=== PATIENT | male | born 1985 | race Caucasian/White ===

== ENCOUNTER 2023-09-25 09:40 | Inpatient (IN) ==
--- NOTE | 2023-09-17 08:31 | PAT Medication Instructions ---
Medication Instructions Date of Service September 17, 2023 Home Medications clonazepam 1 mg tablet (Klonopin) 1 mg PO TID naproxen 500 mg tablet 500 mg PO BID PRN oxycodone-acetaminophen 10 mg-325 mg tablet 1 tab PO QID pantoprazole 40 mg tablet,delayed release (Protonix) 40 mg PO QAM vortioxetine 20 mg tablet (Trintellix) 20 mg PO QAM ASK your surgeon for instructions naproxen 500 mg tablet 500 mg PO BID PRN Take morning of surgery With a small sip of water, OTHERWISE NOTHING TO EAT OR DRINK AFTER MIDNIGHT: clonazepam 1 mg tablet (Klonopin) 1 mg PO TID oxycodone-acetaminophen 10 mg-325 mg tablet 1 tab PO QID pantoprazole 40 mg tablet,delayed release (Protonix) 40 mg PO QAM vortioxetine 20 mg tablet (Trintellix) 20 mg PO QAM Take evening before surgery clonazepam 1 mg tablet (Klonopin) 1 mg PO TID oxycodone-acetaminophen 10 mg-325 mg tablet 1 tab PO QID Other Notes If you have any questions please call us at [phone] or [phone] or [phone] or [phone]
--- NOTE | 2023-09-17 10:37 | Anesthesiology Consultation ---
Date of Service September 17, 2023 Assessment & Plan (1) Encounter for pre-operative examination: - awaiting surgeon ordered medical clearance (Dr. Tim Howell, [facility]). Chart Review Chart Review: Pending: Refer to Additional Notes / Consult section and Patient seen in Pre Admission Testing Teaching & Discussion Pre-Anesthesia Teaching/Discussion Notes: Instructed NPO after midnight before surgery, except medications with 15 cc of water. Medication instructions provided according to the PAT guidelines. History Surgery Operation Date: 09/25/23 07:45 Proposed Procedures p L4-S1 Decompression and Fusion - Aaron Rodgers DO Height/Weight Height: 6 ft Weight: 95.1 kg Allergies Allergy/AdvReac Type Severity Reaction Status Date / Time No Known Allergies Allergy Verified 09/17/23 07:46 Medications Home Medications Medication Instructions Recorded Confirmed Last Taken clonazepam 1 mg tablet (Klonopin) 1 mg PO TID 09/17/23 09/17/23 Unknown naproxen 500 mg tablet 500 mg PO BID PRN Pain 09/17/23 09/17/23 Unknown oxycodone-acetaminophen 10 mg-325 1 tab PO QID pain 09/17/23 09/17/23 Unknown mg tablet pantoprazole 40 mg tablet,delayed 40 mg PO QAM 09/17/23 09/17/23 Unknown release (Protonix) vortioxetine 20 mg tablet 20 mg PO QAM 09/17/23 09/17/23 Unknown (Trintellix) Past Medical History Medical History (Updated 09/17/23 @ 11:13 by Nona Garcia PA-C) Anxiety Chronic back pain Degenerative disc disease Depression GERD (gastroesophageal reflux disease) controlled, stable per pt Rheumatoid arthritis denies neck pain Patient denies h/o stroke, seizures, heart attack, heart failure, DM, HTN, blood clots/DVTs or blood transfusions. Exercise / Class Metabolic Activity II 4-5 Yardwork/Stairs/Walk up hill (denies chest discomfort or shortness of breath with one flight of stairs) Past Family History Family History Other No family history of adverse response to anesthesia Past Surgical History Surgical History H/O drainage of abscess (1999) tonsillar abscess History of colonoscopy History of esophagogastroduodenoscopy (EGD) S/P epidural steroid injection S/P tonsillectomy (1999) Past Anesthesia History No Family Hx of Anesthesia Complications and Other (awareness with anesthesia) History of PONV No Hx of PONV and No Hx of Motion Sickness Social History Smoking Status: Current every day smoker Smoking cigarettes per day: 1-2 cigs daily (advised on policy) Do You Dip or Chew Tobacco: Yes (1 can/2 days (advised on policy)) Hx Alcohol Use: No Hx Substance Use: Yes substance use type: marijuana Substance Use Type Other:: medical THC Last Used Substance Other:: 09/16/23 (advised on policy) Review of Systems Patient denies chest pain, shortness of breath, dyspnea on exertion, snoring, witnessed apneas, fever, chills, cough, wheezing, or palpitations. Physical Exam Vital Signs Vitals BP 120/87 P 84 SP02 99% on RA RESP 18 Physical Patient resting comfortably in chair in no acute distress, alert and oriented, responding appropriately throughout visit Full cervical extension range of motion without pain TMD 3.5 finger breadths Mallampati Score 2 Dentition: intact, denies chipped or loose teeth, caps/crowns, implants or bridges Lungs: normal respiratory effort. Good air movement, clear throughout to a uscultation, no adventitious breath sounds Cardiac: regular rate and rhythm, no murmurs noted Carotid arteries: negative bruit bilat Lab Results Anesthesia Preop Results Results Anesthesia Widget: WBC 8.86 K/ul (4.8-10.8) 09/17/23 Hgb 15.3 g/dl (14.0-18.0) 09/17/23 Hct 45.6 % (42.0-52.0) 09/17/23 Plt 237 K/uL (130-400) 09/17/23 Na 138 mmol/L (136-145) 09/17/23 K 4.6 mmol/L (3.5-5.1) 09/17/23 Cl 104 mmol/L (98-107) 09/17/23 CO2 31 mmol/L (21-32) 09/17/23 BUN 13 mg/dl (6-23) 09/17/23 Creat 0.98 mg/dl (0.6-1.4) 09/17/23 Glucose Level 92 mg/dl (70-99(Fasting)) 09/17/23 PT 10.4 Seconds (9.0-12.0) 09/17/23 PTT 25 Seconds (21-31) 09/17/23 INR 1.0 (0.9-1.1) 09/17/23 HA1c 5.3 % (4.5-5.6) 09/17/23 Urine Color Yellow 09/17/23 Urine Appearance Clear (Clear) 09/17/23 Urine pH 8.0 (4.5-7.5) H 09/17/23 Urine Specific [place] 1.006 (1.000-1.030) 09/17/23 Urine Protein Negative (Negative) 09/17/23 Urine Glucose (UA) Negative (Negative) 09/17/23 Urine Ketones Negative (Negative) 09/17/23 Urine Blood Negative (Negative) 09/17/23 Urine Nitrite Negative (Negative) 09/17/23 Urine Bilirubin Negative (Negative) 09/17/23 Urine Urobilinogen Negative (Negative) 09/17/23 Urine Leukocyte Esterase Negative (Negative) 09/17/23 Blood Type A Positive 09/17/23 Antibody Screen NEGATIVE 09/17/23 Testing Electrocardiogram Date: 09/17/23 NSR, rate 66 bpm Chest X-Ray Date: 09/17/23 No acute process. Cervical Spine Date: 09/17/23 No evidence for acute fracture or subluxation.
[2023-09-25] MEDS: ACETAMINOPHEN 500 MG TAB PO SCH (10:56)
[2023-09-25] MEDS: LR 15ML/HR IV SCH (10:56)
[2023-09-25] MEDS: LR 60ML/HR IV SCH (10:56)
[2023-09-25] MEDS: GABAPENTIN 900 MG DOSE PO SCH (10:56)
[2023-09-25] MEDS: CeleBREX 200 MG CAP PO SCH (10:57)
[2023-09-25] MEDS ORDERED: ATROPINE SULFATE 0.1 MG/ML 10ML SYR IV PRN (11:48)
[2023-09-25] MEDS ORDERED: DROPERIDOL 5 MG/2 ML VIAL IV PRN (11:48)
[2023-09-25] MEDS ORDERED: ePHEDrine sulfate 50 MG/ML AMP IV PRN (11:48)
--- NOTE | 2023-09-25 12:28 | History & Physical Bridge Note ---
Date of Service September 25, 2023 History & Physical Bridge Note I have examined the patient, reviewed the History & Physical and in the interval since the performance of the History & Physical I have noted the following changes of clinical significance: no changes noted
--- NOTE | 2023-09-25 12:29 | History & Physical Report ---
Date of Service September 25, 2023 Assessment & Plan (1) Neurogenic claudication due to lumbar spinal stenosis: Plan: L4-S1 decompression and fusion History of Present Illness Chief Complaint: Back and bilateral leg pain Primary Care Provider: NO PCP This is a 38-year-old male who presents with chronic persistent back and leg pain after failing course of nonoperative care is here for surgical intervention. Allergies Allergy/AdvReac Type Severity Reaction Status Date / Time No Known Allergies Allergy Verified 09/25/23 10:19 Home Medications Medication Instructions Recorded Confirmed Type clonazepam 1 mg tablet (Klonopin) 1 mg PO TID 09/17/23 09/25/23 History naproxen 500 mg tablet 500 mg PO BID PRN Pain 09/17/23 09/25/23 History oxycodone-acetaminophen 10 mg-325 1 tab PO QID pain 09/17/23 09/25/23 History mg tablet pantoprazole 40 mg tablet,delayed 40 mg PO QAM 09/17/23 09/25/23 History release (Protonix) vortioxetine 20 mg tablet 20 mg PO QAM 09/17/23 09/25/23 History (Trintellix) Past Med/Surg History Problem List (Updated 09/25/23 @ 12:29 by Aaron Rodgers DO) Neurogenic claudication due to lumbar spinal stenosis Encounter for pre-operative examination Medical History (Updated 09/25/23 @ 12:29 by Aaron Rodgers DO) Rheumatoid arthritis denies neck pain Degenerative disc disease Chronic back pain GERD (gastroesophageal reflux disease) controlled, stable per pt Depression Anxiety Surgical History History of esophagogastroduodenoscopy (EGD) S/P epidural steroid injection H/O drainage of abscess (1999) tonsillar abscess S/P tonsillectomy (1999) History of colonoscopy Family History Other No family history of adverse response to anesthesia Social History Smoking Status: Current every day smoker Tobacco Type: Cigarettes Cigarettes Per Day: 1-2 cigs daily (advised on policy); Second Hand Exposure: No; Do You Dip or Chew Tobacco: Yes (1 can/2 days (advised on policy)); Tobacco Cessation Education Requested by Patient: No Hx Alcohol Use: No Hx Substance Use: Yes Last Used Substance Other:: 09/16/23 (advised on policy) Substance Use Type Other:: medical THC Preferred Language: American Communication Ability: Effective Cleaning Associate Required: No Beliefs That Will Affect Care: None Current Living Situation: Alone Other Information That Helps Us Care for You: No Feels Safe at Home: Yes Safety Concerns: Feels Safe At This Time Assistive Devices: None Physical Exam Physical Exam: Patient is alert and oriented Heart regular in rhythm Lungs clear Results & Data Results & Data Vital Signs (Past 12 Hours) Vital Signs Temp Pulse Resp BP Pulse Ox O2 Del Method 09/25/23 10:21 36.6 C 70 20 141/78 H 97 Room Air
[2023-09-25] MEDS ORDERED: MIDAZOLAM HCL 1 MG/ML 2ML VIAL ONE (12:49)
[2023-09-25] MEDS ORDERED: fentaNYL citrate PF 100 MCG/2 ML VIAL ONE ×3 (12:49→15:19)
[2023-09-25] MEDS: ceFAZolin 2000MG 2,000 MG/15 ML SYR IV SCH ×2 (12:57→20:21)
[2023-09-25] MEDS ORDERED: KETAMINE HCL 10MG/ML SYR ONE (13:19)
[2023-09-25] MEDS: BUPIVACAINE/EPINEPHRINE 0.25% 1:200,000 30 ML VIAL ONE (13:49)
[2023-09-25] MEDS: SURGICEL ABSORB HEMOSTAT 2IN X 14IN TOP ONE (13:51)
[2023-09-25] MEDS ORDERED: ROCURONIUM BROMIDE 10 MG/ML 5 ML VIAL IV ONE (14:14)
[2023-09-25] MEDS ORDERED: ONDANSETRON INJ 2 MG/ML 2 ML VIAL ONE (14:14)
[2023-09-25] MEDS ORDERED: DEXAMETHASONE SOD INJ 4 MG/ML VIAL ONE (14:14)
[2023-09-25] MEDS ORDERED: PROPOFOL IV EMULSION 10 MG/ML 20 ML VIAL IV ONE ×3 (14:14→14:51)
[2023-09-25] MEDS ORDERED: SUGAMMADEX SODIUM 200 MG/2 ML VIAL IV ONE (14:15)
--- NOTE | 2023-09-25 15:24 | Operative Report ---
Post Operative Report Pre & Post Diagnosis Operation Date: 09/25/23 12:25 Pre-Op Diagnosis: Spinal Stenosis of Lumbar Region with Radiculopathy Post-Op Diagnosis: Spinal Stenosis of Lumbar Region with Radiculopathy I identified the patient and participated in the time-out.: Yes Procedure Operation Date: 09/25/23 12:25 Actual Procedures #1 lumbar decompression bilateral medial facetectomies and foraminotomies L4-L5 L5-S1. #2 posterior spinal fusion L4-L5 L5-S1. #3 placement posterior instrumentation L4-S1. #4 interbody fusion L4-L5 L5-S1. #5 placement of Spira 12 x 26 mm x 2 at L4-L5 and 13 x 26 mm x 2 at L5-S1. #6 placement locally harvested morselized autograft posterior gutters per #7 placement infuse collagen sponge combined with Koros in the posterior lateral gutters and Morpheus bone graft interbody space. Surgeon Aaron Rodgers, Etcher Enameling Natanael Bonilla Estimated Blood Loss 650 Findings Consistent with Post-Op Diagnosis Specimens None Indications This is a 38-year-old male presents above-mentioned diagnosis after failing course of nonoperative care is here for surgical invention. Description of Procedure Patient was met with identified informed consent obtained. Patient was then taken to the operative suite underwent patient placed in a prone position on the Ron table on top of the Andrey frame. All bony prominences well-padded eyes inspected to ensure no external pressure placed upon them. This point lumbar spine was prepped and draped in a sterile fashion. Sharp dissection with assistance of Bovie cautery was performed down to and exposing the lamina transverse processes of L4-5 and the sacral ala bilaterally. From caudal to cep halad fashion complete laminectomy L5 was performed including bilateral medial facetectomies and foraminotomies addressing severe foraminal disease. This was followed by complete laminectomy of L4 with bilateral medial facetectomies and foraminotomies also addressing severe foraminal disease. Pedicle screws were then placed in L4-L5 and S1 levels bilaterally with assistance of fluoroscopy in the process christoph placed. By way of transforaminal approach on the right discectomy of L5-S1 was performed endplates guided to subcortical bleeding bone and a 13 x 26 mm Spira cage filled with Koros tapped into position. Then proceeded to the left transforaminal region at L5-S1. Again discectomy performed endplates guarded to subcortical mean bone and a second 13 x 26 mm spiral cage filled with Morpheus bone graft tapped in position. Then proceeded L4-5. Again by way of transforaminal approach on the right a discectomy was performed endplates guided to subcortical bleeding bone and a 12 x 26 mm spiral cage filled with Morpheus bone graft tapped in position. Then proceeded to the left side of the L4-L5 transforaminal region. Again discectomy performed endplates guided to subcortical pain bone and a second 12 x 26 mm spiral cage filled with Morpheus bone graft tapped in position. The rods then compressed locked into final position bilaterally. The transverse processes of L4-5 and sacral ala burred to subcortical bleeding bone. Infuse collagen sponge combined with Koros and local autograft placed in the posterior lateral gutters. 15 round MCKENNA inserted. The incision was then closed with 1 Vicryl in the fascia 2-0 Vicryl subcutaneously and 4 Monocryl for final skin closure. Steri-Strips sterile dressing placed. Patient awakened taken to PACU in stable condition. Please note spinal cord monitoring was utilized at the procedure no changes noted. Natanael Bonilla was present at the entire procedure and all the patient positioning complex portion of the surgery and final skin closure. Im ordering 20 grams of Triple [place] Collagen Powder ([employer] [id number]) to treat an incision wound that was caused by a spine procedure. The incision is approximately 2 cm(W) x 4 cm(L) into the joint (D) in size and is a full thickness wound. Triple [place] collagen comes in 1 gram packets so 20 packets were ordered. Given the size of the wound, with light to moderate exudate I chose to order a 20 day supply. The patient will be provided instructions for proper application of the collagen wound kit. The patient will be asked to apply the collagen powder daily and then cover it with sterile dressings dispensed. Collagen was selected as I expect the collagen to attract monocytes and fibroblasts, act as a sacrificial substrate for MMPs, and ultimately proved a matrix for tissue and vessel growth. The collagen will act as a primary dressing in this scenario. It is medically necessary for proper healing of these wounds to improve bioavailability and contact with each wound surface, this is also to help prevent infection of wounds and promote healing ultimately leading to a better healing outcome and limit the risk of infection. I attest to the content of the Intraoperative Record and any orders documented therein. Any exceptions are noted below.
--- NOTE | 2023-09-25 15:39 | Fluoroscopy Report ---
FL lumbar spine 2-3V CLINICAL HISTORY: L4-S1 DECOMP/FUSION TECHNIQUE: 2 views were obtained with the C-arm in the OR with the above procedure. Total fluoroscopy time was 23.5 seconds. Radiation dose was 17.50 mGy. Comparison: None available at the time of this dictation. FINDINGS/IMPRESSION: Intraoperative images were obtained of L4-L5 decompression and fusion. Please correlate with intraoperative fluoroscopy and operative report. ACT 112: Negative or not required by law. Electronically signed by: Los Dennis M.D. 09/25/2023 3:37 PM
[2023-09-25] MEDS: HYDROmorphone INJ 2 MG/ML SYR/VIAL IV PRN (15:49)
--- NOTE | 2023-09-25 16:07 | Anesthesiology Progress Note ---
Date of Service September 25, 2023 Anesthesia Post Procedure Vital Signs Vital Signs: Temp Pulse Pulse Resp BP Pulse Ox O2 Del Method 09/25/23 16:00 88 25 H 148/86 H 95 Room Air 09/25/23 15:50 36.2 C L 97 H 17 135/84 100 Room Air 09/25/23 10:21 36.6 C 70 20 141/78 H 97 Room Air Pain Intensity Right Lower Back: Pain Intensity: 7 Transfer of Care Handoff Completed per policy Notes Mental Status: alert / awake / arousable and participated in evaluation Nausea / Vomiting: adequately controlled Pain: adequately controlled Airway Patency, RR, SpO2: stable & adequate BP & HR: stable & adequate Hydration State: stable & adequate Anesthetic Complications: no major complications apparent and Pt Satisfied with anesthetic care
[2023-09-25] MEDS: ceFAZolin 330 MG/ML 1 GM VIAL ONE (16:29)
[2023-09-25] MEDS ORDERED: diphenhydrAMINE Capsule 25 MG CAP PO PRN (17:09)
[2023-09-25] MEDS ORDERED: DO NOT ADMINISTER FLU VACCINE PRN (17:09)
[2023-09-25] MEDS ORDERED: MAGNESIUM HYDROXIDE SUSP 30 ML UDC PO PRN (17:09)
[2023-09-25] MEDS ORDERED: ONDANSETRON INJ 2 MG/ML 2 ML VIAL IV PRN (17:09)
[2023-09-25] MEDS ORDERED: hydrOXYzine HCl 25 MG TAB PO PRN (17:09)
[2023-09-25] MEDS ORDERED: FAMOTIDINE 20 MG TAB PO PRN (17:09)
[2023-09-25] MEDS ORDERED: NALOXONE HCL 0.4 MG/1 ML VIAL/CARP IV PRN (17:09)
[2023-09-25] MEDS ORDERED: ONDANSETRON 4 MG OD TAB PO PRN (17:09)
[2023-09-25] MEDS ORDERED: HYDROmorphone INJ 0.5 MG/0.5 ML SYR IV PRN (17:09)
[2023-09-25] MEDS ORDERED: bisacodyL 10 MG SUPP PR PRN (17:09)
[2023-09-25] MEDS ORDERED: METOCLOPRAMIDE HCL INJ 5 MG/ML 2 ML VIAL IV PRN (17:09)
[2023-09-25] MEDS ORDERED: SOD PHOSPHATE/SOD BIPHOSPHATE ENEMA 132 ML BTL PR PRN (17:09)
[2023-09-25] MEDS ORDERED: PROMETHAZINE HCL 12.5 MG in SODIUM CHLORIDE 0.9% 50 ML IV PRN (17:09)
[2023-09-25] MEDS ORDERED: ALUMINUM/MAGNESIUM SUSP 30 ML UDC PO PRN (17:09)
[2023-09-25] MEDS ORDERED: DO NOT ADMINISTER PNEUMOCOCCAL VACCINE PRN (17:09)
[2023-09-25] MEDS: LACTATED RINGER'S 1,000 ML IV SCH (17:58)
[2023-09-25] MEDS: oxyCODONE/ACETAMINOPHEN 10-325 TAB PO SCH (17:58)
[2023-09-25] MEDS: NICOTINE 21 MG/24 HR TDSY TD SCH (20:21)
[2023-09-25] MEDS: DOCUSATE SODIUM/SENNA 50/8.6MG TAB PO SCH (20:21)
[2023-09-25] MEDS: clonazePAM 1 MG TAB PO SCH (20:28)
[2023-09-25] MEDS: KETOROLAC 30 MG/ML VIAL IV SCH (23:22)
[2023-09-26] MEDS: HYDROmorphone INJ 1 MG/ML SYRINGE IV PRN
[2023-09-26] MEDS: POLYETHYLENE (MIRALAX) 17 GM PACK PO SCH (05:47)
[2023-09-26] MEDS: PANTOprazole 40 MG TAB PO SCH (07:27)
[2023-09-26] MEDS: dexAMETHasone 6 MG in SYRINGE 0 ML IV SCH (07:27)
[2023-09-26 07:51] LABS: Basophils # (auto) 0.02 K/uL (0.00-0.20); Basophils % (auto) 0.2 %; Eosinophils # (auto) 0.02 K/uL (0.00-0.50); Eosinophils % (auto) 0.2 %; Hematocrit (blood only) 34.8 % (42.0-52.0); Immature Granulocytes # (auto) 0.04 K/uL (0.01-0.20); Immature Granulocytes % (auto) 0.4 %; Lymphocytes % (auto) 14.3 %; Mean Corpuscular Hemoglobin 31.1 pg (25.0-34.0); Mean Corpuscular Hgb Conc 34.5 g/dL (32.0-36.0); Mean Corpuscular Volume 90.2 fL (80.0-100.0); Mean Platelet Volume 10.7 fL (9.4-12.4); Monocytes # (auto) 0.76 K/uL (0.11-0.59); Monocytes % (auto) 6.8 %; Neutrophils # (auto) 8.72 K/uL (1.40-6.50); Neutrophils % (auto) 78.1 %; Platelet Count 230 K/uL (130-400); RDW Coefficient of Variation 12.9 % (11.5-14.5); RDW Standard Deviation 42.6 fL (36.4-46.3); Red Blood Count 3.86 M/uL (4.70-6.10); White Blood Count 11.16 K/ul (4.8-10.8)
[2023-09-26 08:07] LABS: BUN Creatinine Ratio 15.5 (10-20); Calcium 8.6 mg/dl (8.6-10.3); Creatinine Clr Calc Pharmacy 112.2 ml/min; Est GFR (African American) 113.5 ml/min; Est GFR (Non-African American) 97.9 ml/min; Potassium 3.9 mmol/L (3.5-5.1)
[2023-09-26] MEDS ORDERED: VORTIOXETINE HYDROBROMIDE PO SCH (09:00)
[2023-09-26] MEDS: LORazepam 0.5 MG TAB PO PRN (09:42)
--- NOTE | 2023-09-26 10:41 | Orthopedic Progress Note ---
Date of Service September 26, 2023 Assessment & Plan (1) Neurogenic claudication due to lumbar spinal stenosis: Plan: At this time we will continue physical therapy monitor his MCKENNA output over the discharge home the next few days. Admission and Anticipated Discharge Date Admission Date: September 25, 2023 Subjective Back pain controlled leg symptoms improved Physical Exam Physical Exam: Patient has good strength testing lower extremities. Has been up and ambulating. Results & Data Vital Signs (Past 12 Hours) Vital Signs Temp Pulse Resp BP Pulse Ox O2 Del Method 09/26/23 07:12 36.4 C L 77 18 117/69 98 Room Air 09/26/23 03:19 36.7 C 93 H 18 125/75 95 Room Air 09/25/23 23:52 37.5 C 97 H 18 120/73 97 Room Air
[2023-09-26] MEDS: VORTIOXETINE HYDROBROMIDE PO SCH (11:19)
[2023-09-26] MEDS: ACETAMINOPHEN 1,000 MG/100 ML VIAL IV PRN (14:02)
[2023-09-27] MEDS: ACETAMINOPHEN 500 MG TAB PO PRN (04:35)
--- NOTE | 2023-09-27 08:57 | Orthopedic Progress Note ---
Date of Service September 27, 2023 Assessment & Plan (1) Neurogenic claudication due to lumbar spinal stenosis: Plan: Stephen is postoperative day 2 status post lumbar decompression and fusion L4-S1. Maintain MCKENNA drain. Continue with physical therapy/ambulation. Continue with pain control. DVT prophylaxis is in the form teds and SCDs. Continue with aggressive bowel regimen. Anticipate discharge home tomorrow Admission and Anticipated Discharge Date Admission Date: September 25, 2023 Subjective Stephen is postoperative day 2 status post lumbar decompression and fusion L4-S1. Only complaint is of back pain. Leg symptoms improved. MCKENNA drain output last shift was 30 cc. He had a bowel movement. Yesterday in physical therapy [place] 400 feet plus the hallways. Review of Systems Review of Systems: All systems reviewed & are unremarkable except as noted in HPI & below Physical Exam Physical Exam: Laying in bed in no acute distress Alert and oriented x 3 lumbar dressing is clean dry intact with functioning MCKENNA drain calf soft nontender bilaterally strength intact bilateral lower extremities Results & Data Vital Signs (Past 12 Hours) Vital Signs Temp Pulse Resp BP Pulse Ox O2 Del Method 09/27/23 06:49 36.8 C 83 16 110/63 96 Room Air
[2023-09-27] MEDS: traMADol HCL 50 MG TABLET PO PRN (13:55)
[2023-09-27] MEDS: LORazepam 0.5 MG in SYRINGE 0.25 ML IV PRN (14:13)
[2023-09-28] MEDS: oxyCODONE HCL IR 5 MG TAB (IMMEDIATE RELEASE) PO PRN (07:33)
--- NOTE | 2023-09-28 11:15 | Discharge Summary ---
Date of Service September 28, 2023 Admission HPI Per Admitting Provider This is a 38-year-old male who presents with chronic persistent back and leg pain after failing course of nonoperative care is here for surgical intervention. Principal Diagnosis Lumbar spinal stenosis with neurogenic claudication Discharge Data Allergies Allergy/AdvReac Type Severity Reaction Status Date / Time No Known Allergies Allergy Verified 09/25/23 10:19 Procedures Performed Operation Date: 09/25/23 12:25 Actual Procedures p L4-S1 Decompression and Fusion, Spinal Cord Monitoring(Not Applicable) - Aaron Rodgers DO Ordered Studies 09/25/23 07:00 [place] lumbar spine 2-3V Routine Hospital Course (1) Neurogenic claudication due to lumbar spinal stenosis: Patient underwent lumbar decompression fusion tolerated this well was taken to orthopedic for postoperative. Postop he progressed appropriately. MCKENNA drain decreasing. Good strength testing. Pain controlled. Excellent strength testing. Subsequently discharged home. Discharge orders instructions from the chart for further review. Total Time Total Time Spent Total Time Spent (In Minutes): 20 minutes Discharge Plan Discharge Items Patient Disposition: Home - Self-Care Reason For Visit: Spinal Stenosis of Lumbar Region with Radiculopath Discharge Diagnosis: Lumbar spinal stenosis with neurogenic claudication Activity: As commented below Non-emergency contact: Primary Care Provider Call non-emergency contact if: you have any medication questions Follow-up/Referrals: PCP,ASHLEY [Primary Care Provider] - Diet: Regular Addtl Attending Provider Instructions: ACTIVITY RECOMMENDATIONS: SELF CARE INSTRUCTIONS AFTER THORACIC/LUMBAR FUSIONS 1. You may walk to your tolerance. It is good exercise for your legs and back. Expect some back and intermittent leg aches and pains. 2. You may perform "counter-top" level activities (make a sandwich, samina with a project, etc.). 3. No bending or lifting of more than 10 pounds or back twisting of any nature (roll like a log when turning in bed). 4. You may ride in a car for 20-30 minutes at a time. No driving until after your first visit with your doctor. 5. Frequent changes of position and restricting sitting to 30 minutes at a time will help limit the amount of back spasms and stiffness you may experience. 6. You may discontinue the use of ambulatory aids (cane, crutches, etc.) once your strength and confidence allow. 7. You may modeling and simulation analyst the shower and let water strike your incision when you arrive home at least once daily. Do not take a tub bath, sit in a hot tub or go into a swimming pool until after your first recheck in the office. SPECIAL CARE INSTRUCTIONS: VERY IMPORTANT TO READ AND REVIEW A. Your surgical incision has been closed with a cosmetic suture under the skin that will dissolve in about 6 weeks. In 14 days, you can use a pair of clean scissors and cut the suture that is left outside of the skin at the ends of your incision. 1. The small skin tapes can be removed 7 days after surgery if they have not fallen off by that point. 2. You may keep the wound open to air as much as possible to promote healing after post-op day number 5 unless told otherwise by your doctor. 3. If you think the wound looks like it is becoming infected (redness or worsening drainage) and/or you are experiencing fever, chill or worsening back pain and muscle spasms, contact the office so that we may evaluate you as soon as possible. B. Complications are uncommon, but please contact us if you have any signs or symptoms of: 1. wound infection (fever higher than 102.5 degrees F, redness, separation of wound, drainage, or increasing pain from the incision) 2. blood clots in legs (pain, swelling, redness and warmth in legs) 3. urinary tract infection (fever higher than 102.5 degrees F, burning upon urination or increased frequency of urination) 4. nerve problems (inability to walk on your toes or heels, numbness, loss of bowel or bladder control) 5. any other symptoms that concern you C. Please call the office at if you have any concerns or questions about your operation or recovery. D. No smoking! Smoking drastically decreases the chance of a solid fusion. E. Do not take any anti-inflammatory medications (Indocin, Advil, Motrin, Aspirin, Naprosyn, etc.) as these may inhibit the chance of a solid fusion. Tylenol is okay to take for pain. MANAGING PAIN AFTER SPINAL SURGERY 1. Narcotic medication is intended for short-term use and will be provided for surgical pain. Surgical pain usually lasts for a period of 4-6 weeks. Narcotic medication includes Percocet, Vicodin, Darvocet, Tylenol #3 or Lortab. 2. Longer-term pain is more appropriately treated with non-narcotic medication such as Tylenol ES. 3. Muscle spasm is not appropriately treated with narcotics. Muscle relaxers such as Soma, Flexeril or Skelaxin can be used along with Tylenol ES. 4. Remember that we all live with some "aches and pains". This is not unusual or uncommon after an injury or as we get older. a. Back pain is expected and may include muscle spasms for 4 to 6 weeks after surgery. The pain should gradually improve. If the pain worsens for no apparent reason, please contact the office. b. Intermittent leg pain may also be experienced and should not be concerned about unless it worsens for no apparent reason. If so, please contact the office. 5. We will provide appropriate medication within the normal guidelines of their prescribed use. We will also be very cautious and aware of potential abuse and extended duration of patients' medication needs. a. Pain medications are for your comfort and to assist with sleep and rest so that the tissue can heal. They are not provided in order to return to normal activity and should not be used through the day. To do so or worsening pain at night can result from ongoing tissue damage and development of tolerance to the prescribed medicine. 6. Please allow 2-3 days to process refills. Prescriptions will not be mailed but must be picked up at the office. FOLLOW UP VISIT: Keep your scheduled follow-up appointment. Any questions, please call the office at . Pending Studies at Discharge: No Stand-Alone Forms: My [facility] [place], Pain - Opioid Pain Management, Smoking Cessation Medications and DC Order Prescriptions: New tramadol 50 mg tablet 50 mg PO Q6H PRN (Reason: pain, moderate) Qty: 30 0RF oxycodone 5 mg tablet 5 mg PO Q6H PRN (Reason: pain) Qty: 30 0RF Continued clonazepam [Klonopin] 1 mg Tablet 1 mg PO TID oxycodone-acetaminophen 10-325 mg Tablet 1 tab PO QID pantoprazole [Protonix] 40 mg Tablet,Delayed Release (Dr/Ec) 40 mg PO QAM Trintellix 20 mg Tablet 20 mg PO QAM No Action naproxen 500 mg Tablet 500 mg PO BID PRN (Reason: Pain) Discharge Orders: Discharge Order (Routine); Ordered 09/28/23 Ordered By: Aaron Harris/Other Patient Handouts: DVT Post Op Prevention Admission Data Admit Date/Time: 09/25/23 15:29 Attending Provider: Aaron Rodgers Admit Provider: Aaron Rodgers Primary Care Provider: PCP,NO Other Interventions: Discharge Summary Assessment (RN) Last Done: 09/28/23 10:21
== END 2023-09-28 12:53 | disposition home or self-care (01) | DRG 455 ==
LOC: ASU 09:40 → 3E 15:29